=== PATIENT | female | born 1995 | race Caucasian/White ===

== ENCOUNTER 2018-02-21 16:15 | Inpatient (IN) | END 2018-02-22 16:35 | disposition home or self-care (01) | DRG 833 ==

== ENCOUNTER 2018-03-01 07:03 | Outpatient (CLI) | END 2018-03-01 08:10 | disposition home or self-care (01) ==

== ENCOUNTER 2018-03-04 07:21 | Outpatient (CLI) | END 2018-03-04 14:38 | disposition home or self-care (01) ==

== ENCOUNTER 2018-03-06 09:07 | Inpatient (IN) | END 2018-03-07 14:40 | disposition home or self-care (01) | DRG 833 ==

== ENCOUNTER 2018-03-08 12:45 | Inpatient (IN) | END 2018-03-13 13:52 | disposition home or self-care (01) | DRG 807 ==